=== PATIENT | female | born 1995 | race American Indian/Alaskan Native ===

== ENCOUNTER 2021-06-02 21:31 | Emergency (ER) | payer SELFPAY ==
[2021-06-02 21:33] VITALS: BP 142/79; PULSE 92; RESP 18; TEMP 36.3; O2SAT 100
--- NOTE | 2021-06-02 21:55 | ED_ITS ---
HPI - Extremity Injury (Lower) General Chief Complaint: Extremity Injury, Lower Stated Complaint: rt leg pain Time Seen by Provider: 06/02/21 21:39 History of Present Illness HPI Narrative: Patient presents with right knee pain. She reports she has had pain for approximately 1 month after she fell on an escalator striking her knee. Pain is achy, constant, worse with using her knee joint and walking. She is attempted topical therapies that is not alleviate her symptoms so she came to the ER for evaluation she denies any focal numbness or weakness. She denies striking her head or any loss of consciousness. Related Data Allergies Allergy/AdvReac Type Severity Reaction Status Date / Time No Known Allergies Allergy Verified 06/02/21 21:36 Review of Systems Review of Systems: CONSTITUTIONAL: Denies fever, chills, or sweats. EYES: Denies visual changes, redness, or discharge. CARDIOVASCULAR: Denies chest pain, palpitations, or edema. RESPIRATORY: Denies cough or dyspnea. SKIN: Denies rash or itching. MUSCULOSKELETAL: Denies back pain, or myalgia. NEUROLOGIC: Denies headache, numbness, dizziness, or weakness. Exam Narrative: GENERAL: Well-appearing, well-nourished, and in no acute distress. HEAD: Normocephalic, atraumatic. EYES: PERRLA and EOMI. ENT: Nares clear, no rhinorrhea or epistaxis. Mucous membranes moist. EXTREMITIES: Normal range of motion. Scant mucus edema noted around the right knee there is mild diffuse tenderness to the right knee there is no obvious deformity knee joint is stable to valgus/varus stress as well as anterior posterior drawer. There is no focal bony tenderness SKIN: Warm, dry, no rash. NEURO: No focal deficits. Alert and oriented x3. PSYCH: Normal mood and affect. Course Vital Signs Vital signs: Vital Signs Temperature 36.3 C L 06/02/21 21:33 Pulse Rate 92 06/02/21 21:33 Respiratory Rate 18 06/02/21 21:33 Blood Pressure 142/79 H 06/02/21 21:33 Pulse Oximetry 100 06/02/21 21:33 Temperature 36.3 C L 06/02/21 21:33 Pulse Rate 92 06/02/21 21:33 Respiratory Rate 18 06/02/21 21:33 Blood Pressure 142/79 H 06/02/21 21:33 Pulse Oximetry 100 06/02/21 21:33 MDM - Extremity Injury (Lower) MDM Narrative Medical decision making narrative: H&P as above, vss, pt looks clinically well, exam stable knee joint without focal bony tenderness, offered x-ray imaging patient declined, additional labs/img considered. symptomatic relief available as needed, patient was offered Toradol for pain relief but declined.. Suspect soft tissue strain versus contusion, dns fracture, dislocation, major neur ovascular compromise. plan to tx/monitor as op w/ pcm f/u findings/plan discussed with pt, pt agree/comfortable with plan, return precautions given Discharge Plan Discharge Clinical Impression: Knee sprain Patient Disposition: Home, Self-Care Condition: Improved Instructions: Antibiotic Form Additional Instructions: Please return if your symptoms worsen or fail to improve. If you develop a fever, can not eat/drink anything or if you have any other concerns. Prescriptions: New ibuprofen 600 mg tablet 600 mg PO TID PRN (Reason: pain) Qty: 30 RF: 0 Follow-up/Referrals: PHYSICIAN,[employer] [Non-Staff] - Time of Disposition: 21:58
== END 2021-06-02 22:12 | disposition home or self-care (01) ==
LOC: ANHED 22:18
PROVIDERS: Emergency Provider Emergency Medicine
DX: S83.91XA Sprain of unspecified site of right knee, initial encounter (principal); W10.0XXA Fall (on)(from) escalator, initial encounter
CPT/HCPCS: 99283

== ENCOUNTER 2021-12-13 19:34 | Emergency (ER) | payer OTHER, SELFPAY ==
[2021-12-13 19:35] VITALS: BP 122/73; PULSE 94; RESP 16; TEMP 36.2; O2SAT 100
--- NOTE | 2021-12-13 21:13 | ED.LOWEXIN ---
HPI - Extremity Injury (Lower) General Chief Complaint: Extremity Injury, Lower Stated Complaint: right leg pain Time Seen by Provider: 12/13/21 21:01 Related Data Allergies Allergy/AdvReac Type Severity Reaction Status Date / Time No Known Allergies Allergy Verified 12/13/21 19:41 Course Course Emergency Course: I signed up for the patient however patient left prior to me entering the room. Vital Signs Vital signs: Vital Signs Temperature 36.2 C L 12/13/21 19:35 Pulse Rate 94 12/13/21 19:35 Respiratory Rate 16 12/13/21 19:35 Blood Pressure 122/73 12/13/21 19:35 Pulse Oximetry 100 12/13/21 19:35 Temperature 36.2 C L 12/13/21 19:35 Pulse Rate 94 12/13/21 19:35 Respiratory Rate 16 12/13/21 19:35 Blood Pressure 122/73 12/13/21 19:35 Pulse Oximetry 100 12/13/21 19:35 Discharge Plan Discharge Patient Disposition: Left Without Being Seen Prescriptions: No Action ibuprofen 600 mg tablet 600 mg PO TID PRN (Reason: pain) Qty: 30 RF: 0 Follow-up/Referrals: UNKNOWN,DOCTOR [Primary Care Provider] -
--- NOTE | 2021-12-13 22:13 | PC.NURSE ---
Patient left prior to being seen. Stated that she did not want to wait any longer. Physician directory provided to patient as she stated she does not have a primary care doctor.
== END 2021-12-13 22:14 | disposition left against medical advice (07) ==
PROVIDERS: Emergency Provider Emergency Medicine
DX: M79.604 Pain in right leg (principal)
CPT/HCPCS: 99199